=== PATIENT | female | born 1985 | race Caucasian/White ===

== ENCOUNTER → 2016-10-24 | Outpatient (CLI) | payer OTHER ==
[~2016-10-24] MED LIST: BACTRIM DS TABL1 TA1 PO; BACTRIM DS TABL1 TAB PO; CLARITIN10 MG PO; HEROIN; LEVAQUIN750 M1 PO; NO MEDICATIONS; PYRIDIUM PO; ROCEPHIN IV; ROCEPHIN10 GM IV; TRAZODONE PO; TYLENOL #3 PO; ZITHROMAX PO
== END | disposition home or self-care (01) ==
LOC: CSSDAY 15:37
DX: A49.02 Methicillin resistant Staphylococcus aureus infection, unspecified site (principal); Z79.2 Long term (current) use of antibiotics
CPT/HCPCS: 96374; J0696

== ENCOUNTER 2017-01-21 17:27 | Inpatient (IN) | payer OTHER ==
--- NOTE | ~2017-01-21 | A ---
[facility] Nutrition Therapy DATE: 01/23/17 Patient: AVA CARTY Physician: OSMAR Address: [address] [place] [address] ROAD Room/Bed: [address] [place] [address], Zip: [place] [address] Admit Date: 01/21/17 Date of : [birth year] Height: 5 7 Weight: 149 67.8 NUTRITIONAL ASSESSMENT: REASON: Consult received re: BMI 19 Admitting Dx: 31 y/o female admitted with endocarditis PMH: Reviewed Anthropometrics: Ht: 67", Wt: 126 lbs (patient confirmed), BMI: 19 (normal) Assessment: RD interviewed the patient who stated she is tolerating a healthy heart diet. She denied any recent weight loss or changes in appetite/PO intake. Consult not appropriate, as the patient's BMI is normal. Recommendations: Continue current diet. Consult not appropriate based on above assessment. Respectfully, Kadie Chaves RD, [facility] [employer] [facility] cc: client file
--- NOTE | ~2017-01-21 | DS ---
Unit #: [id number] #: [id number] Patient: AVA CARTY [id number] [address] [address] [id number] I MR#: [id number] NAME: AVA CARTY ROOM: 571 Age: 31 Sex: F Admission Date: 01/21/2017 : 1985 Discharge Date: Attending Physician: Mohsen Sanchez M.D. Primary Care Physician: No Primary Care Physician DISCHARGE SUMMARY CHIEF COMPLAINT Fever and chills. FURTHER DIAGNOSES 1. Tricuspid valve endocarditis, noncompliant with medications. 2. History of hepatitis C. 3. Anemia, possibly acute blood loss anemia, status post transfusion of 4 units of packed red blood cell in this hospitalization. PROCEDURES DONE Transesophageal echocardiogram which showed ejection fraction of 55%. No clot in the left atrial appendage. There is a 2.1 x 2.6 and 1.5 x 0.5 cm echodense structure suspicious for vegetation on the tricuspid valve. Severe tricuspid regurgitation. Cardiology recommended six weeks of IV antibiotics and followup with jowl trimmer and cardiovascular surgeon. HISTORY OF PRESENT ILLNESS The patient is a 31-year-old lady with a past medical history of IV drug abuse, who was diagnosed with tricuspid valve endocarditis with MSSA and was treated at [facility] for four weeks, inpatient IV antimicrobials and two weeks of outpatient Rocephin which she was noncompliant. Initially, she presented in outlying emergency room with a chief complaint of fevers. In the hospital course, she did have blood cultures. Blood cultures initially grew methicillin-sensitive Staphylococcus aureus and Serratia marcescens. She was initially on vancomycin and her antimicrobials were finally switched to Rocephin and oral Levaquin at the time of discharge. I spoke with the patient at length in the presence of the patient's nurse. Her hemoglobin was dropping down. She received 4 units of PRBC. Her MCV is suggestive of more microcytic. She denies having any menstrual blood losses. She denies throwing up any blood. She denies having any bloody stools. I consulted gastroenterology and patient is refusing any further workup. She rather wants to see gastroenterology as an outpatient. She is very eager to leave the place and she says if you do not discharge I will sign against medical advice. I spoke with the case management director and she is arranging for the outpatient antimicrobials of Rocephin and vancomycin. We are also trying to get weekly twice CBC and BMP. I am arranging for an outpatient appointment with Dr. Díaz in one to two weeks, Dr. Kent and Dr. Kline in four to six weeks. She needs repeat echocardiogram after done with antimicrobials to plan further whether she needs any valve surgery. I spoke with her at length and explained that it is really important for her to come every day for antimicrobials and not to miss them. I did explain to her about the side effects of antimicrobials including diarrhea, (1) and requested her if she develops any of Unit #: [id number] #: [id number] Patient: AVA CARTY she needs to call the physician and stop the antimicrobials. We are hesitant to send her on IV antimicrobials because of her substance abuse. PHYSICAL EXAMINATION On the day of the discharge, her physical examination: VITAL SIGNS: Temperature 97.5, pulse rate 109, respirations 16, blood pressure 117/72. GENERAL: Patient is alert and oriented x3, lying in the bed in no acute distress. HEENT: Normocephalic and atraumatic. No icterus. PERRLA. Extraocular muscles intact. NECK: Supple. No JVD. HEART: S1, S2. Regular rate and rhythm. Murmur present. CHEST: Bilateral equal air entry. Clear to auscultation. ABDOMEN: Soft, nontender. EXTREMITIES: No edema. Normal pulses. DISCHARGE MEDICATIONS 1. Levaquin 750 mg p.o. daily until March 05, 2017. 2. Rocephin 2 g IV daily until March 05, 2017. management accounts manager is arranging for outpatient IV Rocephin. 3. Tylenol p.r.n. 4. Trazodone 25 mg at bedtime. FOLLOWUP She is instructed to follow with her primary care. We are actually arranging for an outpatient appointment for the short stay clinic on February 12, 2017 at 9 a.m. Total time spent in her care, 35 minutes. Dictated by... Andi Laboy/cosme TD: 01/26/2017 16:26 JOB #: [id number] DISCHARGE SUMMARY Page 1 of 1 X X DISCHARGE SUMMARY
--- NOTE | ~2017-01-21 | MR113 ---
[facility] A Service of [facility] RADIOLOGY TEXT RESULTS PATIENT: AVA CARTY LOCATION: [facility] 571-01 : 86 UNIT #: [id number] AGE: [address]: Mohsen Sanchez MD SEX: F ORDER DR: [id number] [facility] [address] [place], [place] [address] [id number] I MR#: [id number] Acc #: [id number] NAME: AVA CARTY : 1985 SEX: F STUDY DATE/TIME: 01/24/2017 9:01 UNIT: [facility] ROOM: [facility] STUDY DESCRIPTION: MR Lumbar Wo Contrast Attending Physician: Mohsen Sanchez M.D. Ordering Physician: Mohsen Sanchez M.D. Primary Care Physician: No Primary Care Physician MRI CENTER REPORT This report is preliminary unless electronic signature is present. EXAM Lumbar spine MRI. HISTORY Low back pain beginning September 2016 with acute worsening over the past 2 weeks with radiation to both legs. Additional history of sepsis with possible vegetation on heart valve. Evaluate for diskitis or vertebral osteomyelitis. TECHNIQUE Multiplanar imaging of the lumbar spine was performed with short and long TR. FINDINGS Multisequence and multiplanar imaging of the lumbar spine was obtained without contrast. The study demonstrates normal vertebral body height, signal and alignment. Intervertebral disk height and signal is within normal limits. The signal of the conus and cauda equina are within normal limits. There is no evidence of canal stenosis or neural foraminal narrowing. The pre and paravertebral soft tissues are unremarkable. IMPRESSION Within normal limits. STAT * RESULT Dictated by... Juan José Sow M.D. THIS IS AN ELECTRONICALLY VERIFIED REPORT Juan José Sow M.D. at 01/24/2017 11:28 AM [facility] A Service of [facility] RADIOLOGY TEXT RESULTS PATIENT: AVA CARTY LOCATION: [facility] 571-01 : [birth year] UNIT #: [id number] AGE: [address]: Mohsen Sanchez MD SEX: F ORDER DR: THIERNO/lisa TD: 01/24/2017 10:08 JOB #: [id number] MRI CENTER REPORT Page 1 of 1 COPY
--- NOTE | ~2017-01-21 | CO ---
Unit #: [id number] #: [id number] Patient: AVA CARTY [id number] [facility]. [place], [place] [address] [id number] I MR#: [id number] NAME: AVA CARTY ROOM: 571 Age: 31 Sex: F Admission Date: 01/21/2017 : 1985 Attending Physician: Mohsen Sanchez M.D. CONSULTATION REPORT REASON FOR CONSULTATION Endocarditis. HISTORY OF PRESENT ILLNESS This is a 31-year-old white female, who has known tricuspid valve endocarditis, presented to [facility] emergency room with a complaint of fever, chills, fatigue, and weakness. She reports no cough or hemoptysis. She was admitted to [facility] in September of this year, where she was hospitalized for one month because of tricuspid valve endocarditis. She was to have tricuspid valve excised, but she failed to follow. After discharge, she came to [facility] for some antibiotic treatment, but that she did not complete. She uses IV heroin and states she last used 2 weeks ago. In the emergency room, drug screen was negative. Blood cultures with one of two sets growing gram-positive cocci in pairs and gram-negative rods. The 2nd set shows to contain both Gram positive cocci in pairs and negative rods. Final report is currently pending. White count is normal, but she has been febrile with temperature of 102.1. Echocardiogram this admission found the patient to have a moderate-sized vegetation on the tricuspid and mitral valve. The patient was unaware of mitral valve endocarditis in the past. She has currently been treated with IV vancomycin. PAST MEDICAL HISTORY 1. 2D echocardiogram on 01/22/2017 shows mild mitral regurgitation with a moderate-sized mitral valve vegetation or mass on the anterior mitral valve leaflet. [id number] tricuspid regurgitation. Moderate-sized vegetation on the posterior leaflet of the tricuspid valve. 2. History of tricuspid valve endocarditis in 09/2016. 3. Hepatitis C. 4. IV drug use. 5. MSSA staph. 6. Anemia. 7. Active smoker. PAST SURGICAL HISTORY Chest tube placement/thoracentesis. SOCIAL HISTORY The patient is and has 5 children. Smokes 1 pack of cigarettes a day. Denies alcohol use. Admitted to IV heroin use 1 month ago. ALLERGIES Unit #: [id number] #: [id number] Patient: AVA CARTY No known drug allergies. HOME MEDICATIONS No current medications. REVIEW OF SYSTEMS CONSTITUTIONAL: Positive for fever and chills. Has no weight gain or weight loss. Reports fatigue and weakness. HEENT: No headache, hearing or vision changes, difficulty with swallowing. Positive for lightheadedness. CARDIOVASCULAR: Has no symptoms of angina. Denies palpitations. No paroxysmal nocturnal dyspnea or orthopnea. No syncope or near syncope. RESPIRATORY: Denies dyspnea at rest, but has some dyspnea on exertion. Denies cough. No hemoptysis. GASTROINTESTINAL: No abdominal pain, nausea, or vomiting. No constipation or melena. EXTREMITIES: Negative for lower extremity edema. PHYSICAL EXAMINATION VITAL SIGNS: Blood pressure is 112/70, heart rate 104, temperature 98.4. GENERAL: This is a thin frail 31-year-old white female, who is in no acute respiratory distress. NEUROLOGIC: She is awake, alert, and oriented. There are no focal weaknesses. NECK: Trachea is midline. No thyromegaly or lymphadenopathy. No jugular venous distention. HEART: S1 with a loud S2. Heart sounds are normal. No murmurs. No rubs or clicks. Regular rate and rhythm. Tachycardic. ABDOMEN: Soft and nontender. Bowel sounds are present. EXTREMITIES: Without leg edema. SKIN: Slightly pale and dry. DIAGNOSTIC STUDIES LABORATORY RESULTS: Glucose 135, BUN 27, creatinine 1.8, sodium 134, potassium 3.7, magnesium 1.8. Troponin less than 0.05. White count 6.4, hemoglobin 7.1, hematocrit 21.5, platelet count 155. IMAGING STUDIES: Chest x-ray shows no active disease. CARDIOVASCULAR STUDIES: Electrocardiogram shows normal sinus rhythm with a rate of 87 beats per minute with QTc prolongation of 524 milliseconds. IMPRESSION 1. Tricuspid valve, questionable mitral valve endocarditis. 2. Sepsis with gram positive cocci in pairs and chains and gram negative rods. 3. History of tricuspid valve endocarditis in 09/2016. 4. History of hepatitis C. 5. IV drug use. 6. History of MSSA Staph. 7. Nicotine abuse. 8. Anemia status post transfusion. PLAN 1. Cardiology was consulted for endocarditis. The patient's cultures are positive for gram positive cocci in pairs and chains with gram-negative rods. She is currently on IV vancomycin. 2. Echocardiogram was reviewed. Dr. Kline is not certain that the Unit #: [id number] #: [id number] Patient: AVA CARTY echodense structure is a vegetation on the mitral valve. It could be mitral valve course. 3. We will plan to do VIRGIL to better visualize the tricuspid and mitral valves. 4. Await final blood cultures to identify organisms. 5. We will follow the patient with you. Thank you for allowing us to assist in this patient's care. Dictated by... Michael Escudero A.P.R.N. for Andi Thomas/priti TD: 01/23/2017 17:49 JOB #: [id number] CONSULTATION REPORT Page 1 of 1 X Michael Escudero APRN X CONSULTATION REPORT
--- NOTE | ~2017-01-21 | HP ---
Unit #: [id number] #: [id number] Patient: AVA CARTY [id number] [address] [place], [place] [address] [id number] I MR#: [id number] NAME: AVA CARTY ROOM: 571 Age: 31 Sex: F Admission Date: 01/21/2017 : 1985 Attending Physician: Holley Styles M.D. Primary Care Physician: No Primary Care Physician HISTORY AND PHYSICAL CHIEF COMPLAINT Fevers. HISTORY This 31-year-old female with hepatitis C, previously treated for tricuspid valve endocarditis earlier this year, was transferred from [facility] emergency department for fevers. Patient states that she was treated for tricuspid valve endocarditis at [facility] in September. She was treated for four weeks inpatient, and then she received 2 weeks of outpatient Rocephin, although she thinks she missed about five doses. She was in her usual state of health until three weeks ago when she began to experience generalized aching, fevers, fatigue, a bit of a sore throat. She went to [facility] ER today, had a rectal temperature of 100.1. On examination she does have a 3/6 systolic murmur, best heard in the tricuspid valve. No splinter hemorrhages. Urine does show significant pyuria but the patient denies urinary symptoms. She denies diarrhea, cough or abdominal pain. Labs are also notable for acute kidney injury, hyponatremia, hyponatremia, and microcytic anemia. The patient denies melena or hematochezia, no longer has menstrual periods. PAST MEDICAL HISTORY 1. Hepatitis C. 2. Admission to [facility] for tricuspid valve endocarditis 09/2016. Blood cultures were positive for MSSA Staph. 3. History of heroin abuse but none for the past several weeks. ALLERGIES None. HOME MEDICATIONS None. FAMILY HISTORY Negative for heart disease. SOCIAL HISTORY The patient lives with her and they are homeless I believe. She smokes one pack per day of tobacco, does not drink alcohol. Was injecting heroin but has not used heroin for a few weeks. REVIEW OF SYSTEMS Notable for weakness, fevers, myalgias, hepatitis C, tobacco use, heroin Unit #: [id number] #: [id number] Patient: AVA CARTY abuse, tricuspid valve endocarditis. All other systems were reviewed and are otherwise negative. PHYSICAL EXAMINATION GENERAL: 31-year-old female who looks mildly ill. VITAL SIGNS: Temperature as high as 100.1, pulse 88, respirations 18, blood pressure 93/50. HEENT: Eyes - PERRLA. Extraocular muscles are intact. Pharynx is benign. NECK: Supple without adenopathy or thyromegaly. CHEST: Clear. No CVA tenderness. CARDIAC: Normal S1 and S2 with a 3/6 systolic murmur best heard at the left lower sternal border. ABDOMEN: Bowel sounds are present. No hepatosplenomegaly, tenderness, or masses. EXTREMITIES: Without edema. Pedal pulses are present. No splinter hemorrhage is noted over the nailbeds. No rashes noted. NEUROLOGIC: Patient is awake, alert, and oriented. Cranial nerves are intact. Equal strength throughout. DIAGNOSTIC STUDIES LABORATORY STUDIES: Hematocrit is 20.1 down from 35.3 in September, normal white count and platelet count, MCV is 70, 3 bands are noted. SMA 12 - glucose 139, BUN 32, creatinine 1.9 up from a BUN of 23, creatinine 0.7, sodium 126, potassium 2.6, chloride is 96, CO2 was 20, calcium 7.6, with an albumin of 1.9, alk phos 181, lactic acid 2.1. Cardiac markers are negative. Urinalysis - positive leukocyte esterase with 200 to 300 red cells, 100-200 white cells, 1+ bacteria. IMAGING STUDIES: Chest x-ray - no acute disease. ASSESSMENT 1. Fevers. Will certainly rule out UTI, but I am concerned about the possible recurrence of endocarditis. The patient was treated in September for MSSA tricuspid valve endocarditis. 2. Microcytic anemia. 3. Hypokalemia and hyponatremia. 4. Acute kidney injury possibly in part representing dehydration. 5. Hepatitis C. 6. Heroin abuse but none for the past few weeks, and patient's urine tox screen is negative. PLANS 1. IV fluids, correct electrolytes, check magnesium. 2. Vancomycin and Rocephin pending culture results. 3. Obtain echo. 4. Obtain old records. 5. Transfuse 1 unit of packed red blood cells and aspirin and anemia workup. 6. SCDs for DVT prophylaxis. 7. Further workup and consultants depending on above. Dictated by Holley Styles M.D. AML/ts Unit #: [id number] #: [id number] Patient: AVA CARTY TD: 01/22/2017 05:49 JOB #: [id number] HISTORY AND PHYSICAL Page 1 of 1 X Holley Styles MD X HISTORY AND PHYSICAL
--- NOTE | ~2017-01-21 | CR63 ---
[facility]. [facility] A Service of [facility] & [facility] RADIOLOGY TEXT RESULTS PATIENT: AVA CARTY LOCATION: [facility] : [birth year] UNIT #: [id number] AGE: [address]: Mohsen Sanchez MD SEX: F ORDER DR: [id number] [place] [address] [id number] E MR#: [id number] Acc #: [id number] NAME: AVA CARTY : 1985 SEX: F STUDY DATE/TIME: 01/21/2017 18:52 UNIT: SED ROOM: STUDY DESCRIPTION: CR Chest 2 View Attending Physician: Tariq Herring P.A.-C. Ordering Physician: Tariq Herring P.A.-C. Primary Care Physician: No Primary Care Physician MEDICAL IMAGING REPORT This report is preliminary unless electronic signature is present. EXAM 2-view chest INDICATIONS Fever. Generalized pain for the past 2 weeks. PROCEDURE Frontal and lateral views of the chest COMPARISON 11/13/2011 FINDINGS Heart size within normal limits. No dense consolidation. No pleural fluid or pneumothorax. IMPRESSION No active process Dictated by... Rito Alcaraz M.D. THIS IS AN ELECTRONICALLY VERIFIED REPORT Rito Alcaraz M.D. at 01/22/2017 10:39 AM NIKA/lesly TD: 01/21/2017 19:28 JOB #: [id number] MEDICAL IMAGING REPORT Page 1 of 1
--- NOTE | ~2017-01-21 | EKG ---
PATIENT: AVA CARTY UNIT #: [id number] Ventricular Rate: 87 BPM Atrial Rate: 87 BPM P-R Interval: 144 ms QRS Duration: 98 ms Q-T Interval: 436 ms QTC Calculation(Bezet): 524 ms P [facility]: 63 degrees Calculated R [facility]: 35 degrees Calculated T [facility]: 20 degrees Diagnosis Line: Normal sinus rhythm Diagnosis Line: Prolonged QT Diagnosis Line: Abnormal ECG Diagnosis Line: When compared with ECG of 15-SEP-2016 22:23, Diagnosis Line: No significant change was found Diagnosis Line: Confirmed by SAMRA BOURGEOIS MD ([id number]) on 01/22/2017 Diagnosis Line: 10:42:18 AM INTERPRETING MD: BK PATEL
[~2017-01-21 17:27] MED LIST changes: -LEVAQUIN750 M1 PO; -ROCEPHIN IV; -TRAZODONE PO
[2017-01-21] MEDS ORDERED: NO MEDICATIONS (17:47)
[2017-01-21 19:45] LABS: URINE SOURCE CLEAN CATCH
[2017-01-21 19:47] LABS: URINE APPEARANCE HAZY; URINE BILIRUBIN NEG (NEG); URINE BLOOD 3+ (NEG); URINE COLOR YELLOW; URINE GLUCOSE NEG (NORM); URINE KETONE NEG (NEG); URINE LEUKOCYTE ESTERASE 1+ (NEG); URINE NITRATE NEG (NEG); URINE PH 5.5 (5-8); URINE PROTEIN 1+ (NEG); URINE SPECIFIC GRAVITY <=1.005 (1.003-1.035); URINE UROBILINOGEN 0.2 MG/DL (NORM)
[2017-01-21 19:51] LABS: LYMPHOCYTE# 0.6 X10e3 (1.0-3.5)
[2017-01-21 19:53] LABS: BASOPHIL% 0.4 % (0-2.5); EOSINOPHIL% 0.2 % (0.0-7.0); HEMATOCRIT 20.1 % (35.0-45.0); LYMPHOCYTE% 7.2 % (17.0-45.0); MEAN CELL VOLUME 69.8 FL (83-96); MEAN CORPUSCULAR HEMOGLOBIN 23.6 PG (28-34); MEAN CORPUSCULAR HGB CONC 33.9 g/dL (30-36); MEAN PLATELET VOLUME 8.9 FL (6.5-11.5); MONOCYTE# 0.6 X10e3 (0-1.0); MONOCYTE% 6.9 % (3.0-12.0); NEUTROPHIL# 7.1 X10e3 (1.5-7.1); NEUTROPHIL% 85.3 % (40-75); PLATELET COUNT 175 X10e3 (140-420); RED BLOOD COUNT 2.88 X10e (3.90-5.30); RED CELL DISTRIBUTION WIDTH 17.1 % (11.0-15.5); WHITE BLOOD COUNT 8.3 X10e3 (4.0-10.5)
[2017-01-21 20:06] LABS: DIFF IND YES; HEMOGLOBIN 6.8 gm/dL (12.0-16.0)
[2017-01-21 20:09] LABS: POC - CKMB <1.0 ng/mL (0.0-7.9); POC - TROPONIN <0.05 ng/mL (<=0.05)
[2017-01-21 20:18] LABS: MICRO INDICATED? YES; URINE RBC 200-300 /[HPF] (0-2)
[2017-01-21 20:19] LABS: CULTURE INDICATED? YES; URINE AMORPHOUS SEDIMENT AMORP URATES; URINE BACTERIA 1+ (NEG); URINE MUCUS PRESENT; URINE SQUAMOUS EPITHELIAL CELL OCCAS /[HPF]; URINE TRANSITIONAL EPI CELLS FEW /[HPF]; URINE WBC 100-200 /[HPF] (0-5)
[2017-01-21 20:22] LABS: ALBUMIN SERUM 1.9 g/dL (3.5-5.0); BILIRUBIN, DIRECT 0.3 mg/dL (0.0-0.2); BILIRUBIN,INDIRECT 0.3 mg/dL (0.0-0.9); BILIRUBIN,TOTAL 0.6 mg/dL (0.2-2.0); BUN/CREATININE RATIO 16.84; CALCIUM SERUM 7.6 mg/dL (8.4-10.2); CREATININE SERUM 1.9 mg/dL (0.6-1.4); GLOM FILT RATE Estimated 34.8 mL/min (>60)
[2017-01-21 20:27] LABS: POTASSIUM 2.6 mmol/L (3.5-5.1)
[2017-01-21 20:40] LABS: PLATELET ESTIMATE NORMAL (NORMAL)
[2017-01-21 20:41] LABS: ANISOCYTOSIS SL; HYPOCHROMIA MOD; OVALOCYTES PRESENT; POIKILOCYTOSIS SL
[2017-01-21 20:41] LABS: AMPHETAMINE NEG (NEG); BARBITURATES NEG (NEG); BENZODIAZEPINES NEG (NEG); COCAINE NEG (NEG); MARIJUANA NEG (NEG); OPIATES NEG (NEG); TRICYCLIC ANTIDEPRESSANTS NEG (NEG); U METHADONE NEG (NEG)
[2017-01-22 08:32] LABS: BASOPHIL% 0.2 % (0-2.5); EOSINOPHIL% 0.6 % (0.0-7.0); HEMATOCRIT 21.5 % (35.0-45.0); HEMOGLOBIN 7.1 gm/dL (12.0-16.0); LYMPHOCYTE# 0.4 X10e3 (1.0-3.5); LYMPHOCYTE% 6.8 % (17.0-45.0); MEAN CORPUSCULAR HEMOGLOBIN 24.1 PG (28-34); MEAN CORPUSCULAR HGB CONC 32.8 g/dL (30-36); MEAN PLATELET VOLUME 9.2 FL (6.5-11.5); MONOCYTE# 0.3 X10e3 (0-1.0); MONOCYTE% 4.8 % (3.0-12.0); NEUTROPHIL# 5.6 X10e3 (1.5-7.1); NEUTROPHIL% 87.6 % (40-75); PLATELET COUNT 155 X10e3 (140-420); RED BLOOD COUNT 2.93 X10e (3.90-5.30); RED CELL DISTRIBUTION WIDTH 18.8 % (11.0-15.5); RETICULOCYTE 0.4 % (0.5-2.8); WHITE BLOOD COUNT 6.4 X10e3 (4.0-10.5)
[2017-01-22 08:33] LABS: DIFF IND NO; MEAN CELL VOLUME 73.5 FL (83-96)
[2017-01-22 08:44] LABS: INR 1.1; PARTIAL THROMBOPLASTIN TIME 34.5 SECONDS (23.5-31.3); PROTHROMBIN TIME (PATIENT) 11.6 SECONDS (9.6-11.5)
[2017-01-22 09:22] LABS: CALCIUM SERUM 7.1 mg/dL (8.4-10.2); CREATININE SERUM 1.8 mg/dL (0.6-1.4); GLOM FILT RATE Estimated 37.1 mL/min (>60); MAGNESIUM 1.9 mg/dL (1.6-3.0); POTASSIUM 3.7 mmol/L (3.5-5.1)
[2017-01-24 13:40] LABS: BUN/CREATININE RATIO 10.66; CALCIUM SERUM 7.6 mg/dL (8.4-10.2); CREATININE SERUM 1.5 mg/dL (0.6-1.4); GLOM FILT RATE Estimated 46.3 mL/min (>60); POTASSIUM 3.2 mmol/L (3.5-5.1)
[2017-01-24 14:58] LABS: HEMATOCRIT 19.2 % (35.0-45.0); MEAN CELL VOLUME 73.7 FL (83-96); MEAN CORPUSCULAR HEMOGLOBIN 23.7 PG (28-34); MEAN CORPUSCULAR HGB CONC 32.2 g/dL (30-36); MEAN PLATELET VOLUME 8.4 FL (6.5-11.5); RED BLOOD COUNT 2.61 X10e (3.90-5.30); RED CELL DISTRIBUTION WIDTH 18.8 % (11.0-15.5); WHITE BLOOD COUNT 6.5 X10e3 (4.0-10.5)
[2017-01-24 15:04] LABS: HEMOGLOBIN 6.2 gm/dL (12.0-16.0)
[2017-01-25 10:36] LABS: HEMATOCRIT 20.5 % (35.0-45.0); MEAN CELL VOLUME 74.6 FL (83-96); MEAN CORPUSCULAR HEMOGLOBIN 24.4 PG (28-34); MEAN CORPUSCULAR HGB CONC 32.7 g/dL (30-36); MEAN PLATELET VOLUME 7.8 FL (6.5-11.5); RED BLOOD COUNT 2.74 X10e (3.90-5.30); RED CELL DISTRIBUTION WIDTH 19.7 % (11.0-15.5)
[2017-01-25 10:40] LABS: HEMOGLOBIN 6.7 gm/dL (12.0-16.0)
[2017-01-25 11:08] LABS: BUN/CREATININE RATIO 11.53; CALCIUM SERUM 7.8 mg/dL (8.4-10.2); CREATININE SERUM 1.3 mg/dL (0.6-1.4); MAGNESIUM 1.3 mg/dL (1.6-3.0); POTASSIUM 3.2 mmol/L (3.5-5.1)
[2017-01-25 11:52] LABS: HEMATOCRIT 22.3 % (35.0-45.0); HEMOGLOBIN 7.3 gm/dL (12.0-16.0); MEAN CELL VOLUME 74.5 FL (83-96); MEAN CORPUSCULAR HEMOGLOBIN 24.3 PG (28-34); MEAN CORPUSCULAR HGB CONC 32.6 g/dL (30-36); MEAN PLATELET VOLUME 7.6 FL (6.5-11.5); RED CELL DISTRIBUTION WIDTH 19.7 % (11.0-15.5); WHITE BLOOD COUNT 6.6 X10e3 (4.0-10.5)
[2017-01-26 07:08] LABS: HEMATOCRIT 20.2 % (35.0-45.0); MEAN CELL VOLUME 74.9 FL (83-96); MEAN CORPUSCULAR HEMOGLOBIN 24.3 PG (28-34); MEAN CORPUSCULAR HGB CONC 32.4 g/dL (30-36); MEAN PLATELET VOLUME 7.8 FL (6.5-11.5); RED BLOOD COUNT 2.69 X10e (3.90-5.30); RED CELL DISTRIBUTION WIDTH 19.2 % (11.0-15.5); WHITE BLOOD COUNT 6.4 X10e3 (4.0-10.5)
[2017-01-26 07:11] LABS: HEMOGLOBIN 6.5 gm/dL (12.0-16.0)
[2017-01-26 07:41] LABS: CREATININE SERUM 1.1 mg/dL (0.6-1.4); GLOM FILT RATE Estimated 67.3 mL/min (>60); MAGNESIUM 1.6 mg/dL (1.6-3.0); POTASSIUM 3.8 mmol/L (3.5-5.1)
[2017-01-26] MEDS ORDERED: ROCEPHIN IV (16:14)
[2017-01-26] MEDS ORDERED: TRAZODONE PO (16:14)
[2017-01-26] MEDS ORDERED: LEVAQUIN750 M1 PO (16:15)
== END 2017-01-26 18:14 | disposition home or self-care (01) | DRG 871 ==
LOC: SED 17:27 → SEDOF 20:27 → SED 20:27 → SEDOF 22:07 → C5C 22:07 → SED 23:50 → SEDOF 23:50 → C5C 23:50
PROVIDERS: Internal Medicine; Physician Assistant
PROC: 30233N1 Transfusion of Nonautologous Red Blood Cells into Peripheral Vein, Percutaneous Approach (ICD-10-PCS; 2017-01-25)
PROC: B24BZZ4 Ultrasonography of Heart with Aorta, Transesophageal (ICD-10-PCS; principal; 2017-01-26)
DX: A41.9 Sepsis, unspecified organism (principal); E43 Unspecified severe protein-calorie malnutrition; I33.0 Acute and subacute infective endocarditis; N17.9 Acute kidney failure, unspecified; E87.1 Hypo-osmolality and hyponatremia; Q21.1 Atrial septal defect; D62 Acute posthemorrhagic anemia; E86.0 Dehydration; N39.0 Urinary tract infection, site not specified; Z68.1 Body mass index [BMI] 19.9 or less, adult; R65.20 Severe sepsis without septic shock; D50.9 Iron deficiency anemia, unspecified; E87.6 Hypokalemia; B19.20 Unspecified viral hepatitis C without hepatic coma; F11.10 Opioid abuse, uncomplicated; F17.210 Nicotine dependence, cigarettes, uncomplicated; I08.1 Rheumatic disorders of both mitral and tricuspid valves; Z91.14 Patient's other noncompliance with medication regimen
CPT/HCPCS: 36415; 71020; 72148; 80048; 80076; 80202; 80307; 81003; 82553; 82607; 82728; 83540; 83550; 83605; 83735; 84484; 85025; 85027; 85044; 85610; 85730; 86850; 86870; 86900; 86901; 86922; 86923; 87040; 87077; 87086; 87186; 87806; 93005; 93306; 93312; 96360; 99285; J0696; J1956; J2250; J2543; J3010; J3370; J3475; P9016

== ENCOUNTER → 2017-01-28 | Outpatient (CLI) | payer OTHER ==
[~2017-01-28] MED LIST changes: +LEVAQUIN750 M1 PO; +ROCEPHIN IV; +TRAZODONE PO
== END | disposition home or self-care (01) ==
LOC: CSSDAY 07:45
DX: Z53.9 Procedure and treatment not carried out, unspecified reason (principal)
CPT/HCPCS: J0696

== ENCOUNTER → 2017-01-29 | Outpatient (CLI) | payer OTHER ==
[2017-01-29 08:37] LABS: AMPHETAMINE NEG (NEG); BARBITURATES NEG (NEG); BENZODIAZEPINES NEG (NEG); COCAINE NEG (NEG); MARIJUANA NEG (NEG); OPIATES POS (NEG); TRICYCLIC ANTIDEPRESSANTS NEG (NEG); U METHADONE NEG (NEG)
== END | disposition home or self-care (01) ==
LOC: CSSDAY 08:05
PROVIDERS: Internal Medicine
DX: I07.9 Rheumatic tricuspid valve disease, unspecified (principal)
CPT/HCPCS: 80307

== ENCOUNTER → 2017-01-30 | Outpatient (CLI) | payer OTHER ==
--- NOTE | ~2017-01-30 | XA166 ---
[facility] A Service of [facility] RADIOLOGY TEXT RESULTS PATIENT: AVA CARTY LOCATION: [facility] : 87 UNIT #: [id number] AGE: [address]: Nitesh Cruz MD SEX: F ORDER DR: [id number] [facility] [address] [place], [place] [address] [id number] O MR#: [id number] Acc #: [id number] NAME: AVA CARTY : 1985 SEX: F STUDY DATE/TIME: 01/30/2017 8:09 [facility] RO[facility]: STUDY DESCRIPTION: XA PICC Line Placement WO Port Attending Physician: Nitesh Cruz M.D. Referring Physician: Nitesh Cruz M.D. Ordering Physician: Nitesh Cruz M.D. Primary Care Physician: No Primary Care Physician MEDICAL IMAGING REPORT This report is preliminary unless electronic signature is present EXAM XA PICC line placement without port. INDICATION IV access. PRE-PROCEDURE The procedure was explained to the patient and/or patient factory representative including risks, benefits, potential complications and potential for alternative forms of treatment. Informed consent was obtained, and prior to initiating the procedure a formal timeout procedure was performed. PROCEDURE Using full standard sterile barrier technique, including caps, gowns, gloves, masks, as well as sterile skin preparation and standard sterile draping, the right arm (basilic vein) was prepped and draped in the usual fashion, and real-time sterile ultrasound guidance was used to localize an arm vein and to confirm vessel patency. A hard copy ultrasound image was recorded. After local anesthesia with 1% Xylocaine, the vein was punctured using real-time sterile ultrasound guidance, and an 0.018 guidewire was advanced into the superior vena cava, using fluoroscopic guidance. A 4-Romanian single-lumen (36 cm) PICC was then measured and deployed with the tip positioned in the superior vena cava. The position of the line was documented with a radiographic image. The line was secured in place with an adhesive dressing and an antibiotic patch was applied. Total fluoro time was 0.2 minutes. 1 fluoroscopic image was taken. IMPRESSION Successful placement of a 4-Romanian single-lumen (36 cm) PowerPICC via the right arm (basilic vein) under ultrasound and fluoroscopic guidance. The tip of the PICC is in good position in the superior vena cava. [facility]. [facility] A Service of [facility] RADIOLOGY TEXT RESULTS PATIENT: AVA CARTY LOCATION: [facility] : 87 UNIT #: [id number] AGE: [address]: Nitesh Cruz MD SEX: F ORDER DR: A single fluoroscopic spot image was obtained. Dictated by... Edgar Cheatham M.D. THIS IS AN ELECTRONICALLY VERIFIED REPORT Edgar Cheatham M.D. at 01/31/2017 9:50 AM FRANCISCO/lyndsey TD: 01/30/2017 21:25 JOB #: [id number] MEDICAL IMAGING REPORT Page 1 of 1 COPY
== END | disposition home or self-care (01) ==
LOC: CIVR 07:55
DX: Z45.2 Encounter for adjustment and management of vascular access device (principal)
CPT/HCPCS: 76937; 77001; C1751; J0696; J1642

== ENCOUNTER → 2017-01-31 | Outpatient (CLI) | payer OTHER | END | disposition home or self-care (01) | LOC: CSSDAY 09:00 | DX: I07.9 Rheumatic tricuspid valve disease, unspecified (principal) | CPT/HCPCS: 96374; J0696 ==

== ENCOUNTER → 2017-02-01 | Outpatient (CLI) | payer OTHER | END | disposition home or self-care (01) | LOC: CSSDAY 07:40 | DX: I07.9 Rheumatic tricuspid valve disease, unspecified (principal) | CPT/HCPCS: 96374; J0696 ==

== ENCOUNTER → 2017-02-02 | Outpatient (CLI) | payer OTHER ==
[2017-02-02 08:27] LABS: BASOPHIL# 0.1 X10e3 (0-0.3); BASOPHIL% 0.8 % (0-2.5); DIFF IND NO; EOSINOPHIL# 0.1 X10e3 (0-0.7); EOSINOPHIL% 0.6 % (0.0-7.0); HEMOGLOBIN 9.8 gm/dL (12.0-16.0); LYMPHOCYTE# 1.1 X10e3 (1.0-3.5); LYMPHOCYTE% 14.2 % (17.0-45.0); MEAN CELL VOLUME 78.3 FL (83-96); MEAN CORPUSCULAR HEMOGLOBIN 25.6 PG (28-34); MEAN CORPUSCULAR HGB CONC 32.7 g/dL (30-36); MEAN PLATELET VOLUME 7.6 FL (6.5-11.5); MONOCYTE# 0.5 X10e3 (0-1.0); MONOCYTE% 5.9 % (3.0-12.0); NEUTROPHIL# 6.3 X10e3 (1.5-7.1); NEUTROPHIL% 78.5 % (40-75); PLATELET COUNT 195 X10e3 (140-420); RED BLOOD COUNT 3.84 X10e (3.90-5.30)
[2017-02-02 08:51] LABS: BUN/CREATININE RATIO 34.28; CALCIUM SERUM 9.1 mg/dL (8.4-10.2); CREATININE SERUM 0.7 mg/dL (0.6-1.4); GLOM FILT RATE Estimated 116.3 mL/min (>60)
== END | disposition home or self-care (01) ==
LOC: CSSDAY 07:34
PROVIDERS: Internal Medicine
DX: I07.9 Rheumatic tricuspid valve disease, unspecified (principal)
CPT/HCPCS: 80048; 85025; 96374; J0696

== ENCOUNTER → 2017-02-03 | Outpatient (CLI) | payer OTHER | END | disposition home or self-care (01) | LOC: CSSDAY 07:27 | DX: I07.9 Rheumatic tricuspid valve disease, unspecified (principal) | CPT/HCPCS: 96374; J0696 ==

== ENCOUNTER → 2017-02-04 | Outpatient (CLI) | payer OTHER | END | disposition home or self-care (01) | LOC: CSSDAY 07:16 | DX: I07.9 Rheumatic tricuspid valve disease, unspecified (principal) | CPT/HCPCS: 96374; J0696 ==

== ENCOUNTER → 2017-02-05 | Outpatient (CLI) | payer OTHER ==
[2017-02-05 07:57] LABS: HEMATOCRIT 30.6 % (35.0-45.0); HEMOGLOBIN 9.6 gm/dL (12.0-16.0); MEAN CELL VOLUME 78.8 FL (83-96); MEAN CORPUSCULAR HEMOGLOBIN 24.7 PG (28-34); MEAN CORPUSCULAR HGB CONC 31.4 g/dL (30-36); MEAN PLATELET VOLUME 7.5 FL (6.5-11.5); RED BLOOD COUNT 3.89 X10e (3.90-5.30); RED CELL DISTRIBUTION WIDTH 19.6 % (11.0-15.5); WHITE BLOOD COUNT 8.7 X10e3 (4.0-10.5)
[2017-02-05 08:22] LABS: CREATININE SERUM 0.8 mg/dL (0.6-1.4); POTASSIUM 3.8 mmol/L (3.5-5.1)
== END | disposition home or self-care (01) ==
LOC: CSSDAY 07:22
PROVIDERS: Internal Medicine
DX: I07.9 Rheumatic tricuspid valve disease, unspecified (principal)
CPT/HCPCS: 80048; 85027; 96374; J0696

== ENCOUNTER → 2017-02-06 | Outpatient (CLI) | payer OTHER | END | disposition home or self-care (01) | LOC: CSSDAY 07:49 | DX: I07.9 Rheumatic tricuspid valve disease, unspecified (principal) | CPT/HCPCS: 96374; J0696 ==

== ENCOUNTER → 2017-02-07 | Outpatient (CLI) | payer OTHER | END | disposition home or self-care (01) | LOC: CSSDAY 07:28 | DX: I07.9 Rheumatic tricuspid valve disease, unspecified (principal) | CPT/HCPCS: 96374; J0696 ==

== ENCOUNTER → 2017-02-08 | Outpatient (CLI) | payer OTHER | END | disposition home or self-care (01) | LOC: CSSDAY 07:11 | DX: I07.9 Rheumatic tricuspid valve disease, unspecified (principal) | CPT/HCPCS: 96374; J0696 ==

== ENCOUNTER → 2017-02-09 | Outpatient (CLI) | payer OTHER ==
[2017-02-09 08:51] LABS: BASOPHIL# 0.1 X10e3 (0-0.3); DIFF IND NO; EOSINOPHIL# 0.2 X10e3 (0-0.7); EOSINOPHIL% 2.1 % (0.0-7.0); HEMATOCRIT 29.4 % (35.0-45.0); HEMOGLOBIN 9.4 gm/dL (12.0-16.0); LYMPHOCYTE# 2.3 X10e3 (1.0-3.5); LYMPHOCYTE% 20.4 % (17.0-45.0); MEAN CELL VOLUME 77.1 FL (83-96); MEAN CORPUSCULAR HEMOGLOBIN 24.7 PG (28-34); MEAN PLATELET VOLUME 7.2 FL (6.5-11.5); MONOCYTE# 0.7 X10e3 (0-1.0); MONOCYTE% 5.9 % (3.0-12.0); NEUTROPHIL% 70.6 % (40-75); PLATELET COUNT 352 X10e3 (140-420); RED BLOOD COUNT 3.81 X10e (3.90-5.30); RED CELL DISTRIBUTION WIDTH 20.4 % (11.0-15.5); WHITE BLOOD COUNT 11.3 X10e3 (4.0-10.5)
[2017-02-09 09:19] LABS: CALCIUM SERUM 9.5 mg/dL (8.4-10.2); CREATININE SERUM 0.9 mg/dL (0.6-1.4); GLOM FILT RATE Estimated 85.9 mL/min (>60); POTASSIUM 4.2 mmol/L (3.5-5.1)
== END | disposition home or self-care (01) ==
LOC: CSSDAY 07:47
PROVIDERS: Internal Medicine
DX: I36.8 Other nonrheumatic tricuspid valve disorders (principal); Z79.2 Long term (current) use of antibiotics
CPT/HCPCS: 80048; 80307; 85025; 96374; J0696

== ENCOUNTER → 2017-02-10 | Outpatient (CLI) | payer OTHER | END | disposition home or self-care (01) | LOC: CSSDAY 07:33 | DX: I07.9 Rheumatic tricuspid valve disease, unspecified (principal) | CPT/HCPCS: 96374; G0480; J0696 ==

== ENCOUNTER → 2017-02-12 | Outpatient (CLI) | payer OTHER ==
[2017-02-12 07:57] LABS: BASOPHIL# 0.1 X10e3 (0-0.3); BASOPHIL% 0.9 % (0-2.5); EOSINOPHIL# 0.1 X10e3 (0-0.7); EOSINOPHIL% 1.4 % (0.0-7.0); HEMATOCRIT 31.6 % (35.0-45.0); HEMOGLOBIN 10.2 gm/dL (12.0-16.0); LYMPHOCYTE# 1.7 X10e3 (1.0-3.5); LYMPHOCYTE% 17.8 % (17.0-45.0); MEAN CELL VOLUME 76.9 FL (83-96); MEAN CORPUSCULAR HEMOGLOBIN 24.8 PG (28-34); MEAN CORPUSCULAR HGB CONC 32.3 g/dL (30-36); MEAN PLATELET VOLUME 6.8 FL (6.5-11.5); MONOCYTE# 0.5 X10e3 (0-1.0); MONOCYTE% 5.5 % (3.0-12.0); NEUTROPHIL# 7.3 X10e3 (1.5-7.1); NEUTROPHIL% 74.4 % (40-75); PLATELET COUNT 326 X10e3 (140-420); RED CELL DISTRIBUTION WIDTH 19.8 % (11.0-15.5); WHITE BLOOD COUNT 9.8 X10e3 (4.0-10.5)
[2017-02-12 08:03] LABS: DIFF IND NO
[2017-02-12 08:29] LABS: CALCIUM SERUM 9.5 mg/dL (8.4-10.2); CREATININE SERUM 0.7 mg/dL (0.6-1.4); GLOM FILT RATE Estimated 116.3 mL/min (>60); POTASSIUM 4.1 mmol/L (3.5-5.1)
== END | disposition home or self-care (01) ==
LOC: CSSDAY 07:27
PROVIDERS: Internal Medicine
DX: I36.8 Other nonrheumatic tricuspid valve disorders (principal); Z79.2 Long term (current) use of antibiotics
CPT/HCPCS: 80048; 85025; 96374; J0696

== ENCOUNTER → 2017-02-13 | Outpatient (CLI) | payer OTHER | END | disposition home or self-care (01) | LOC: CSSDAY 07:28 | DX: I36.8 Other nonrheumatic tricuspid valve disorders (principal); Z79.2 Long term (current) use of antibiotics | CPT/HCPCS: 96374; J0696 ==

== ENCOUNTER → 2017-02-14 | Outpatient (CLI) | payer OTHER | END | disposition home or self-care (01) | LOC: CSSDAY 07:00 | DX: I36.8 Other nonrheumatic tricuspid valve disorders (principal) | CPT/HCPCS: 96374; J0696 ==

== ENCOUNTER → 2017-02-18 | Outpatient (CLI) | payer OTHER | END | disposition home or self-care (01) | LOC: CSSDAY 09:19 | DX: I36.8 Other nonrheumatic tricuspid valve disorders (principal); Z79.2 Long term (current) use of antibiotics | CPT/HCPCS: 96374; J0696 ==